=== PATIENT | male | born 1955 | race Two or more races ===

== ENCOUNTER 2019-05-13 18:32 | Emergency (ER) | payer SELFPAY ==
[~2019-05-13] VITALS: Ht 170.2 cm; Wt 66.0 kg
[2019-05-13 19:46] VITALS: BP 137/78
== END 2019-05-13 19:46 | disposition home or self-care (01) ==
LOC: ER 18:32
DX: S00.81XA Abrasion of other part of head, initial encounter (principal); Y35.893A Legal intervention involving other specified means, suspect injured, initial encounter; Y93.89 Activity, other specified; Y92.9 Unspecified place or not applicable
CPT/HCPCS: 99283